=== PATIENT | male | born 1950 | race Caucasian/White ===

== ENCOUNTER → 2017-09-06 | Outpatient (CLI) | payer MEDICARE, BC | LOC: OD 10:13 | PROVIDERS: ATTEND Family Medicine | DX: E11.9 Type 2 diabetes mellitus without complications (principal) | CPT/HCPCS: 36415; 83036 ==

== ENCOUNTER → 2018-01-29 | Outpatient (CLI) | payer BC, MEDICARE ==
[2018-01-29 15:42] LABS: MEAN CORPUSCULAR HEMOGLOBIN 28.1 pg (27.0-33.4); MEAN CORPUSCULAR HGB CONC 32.4 g/dL (32.0-36.0); MEAN CORPUSCULAR VOLUME 87 fl (80-97); PLATELET COUNT 248 10^3/uL (150-450); RED BLOOD COUNT 3.93 10^6/uL (4.35-5.55); RED CELL DISTRIBUTION WIDTH 14.6 % (11.5-14.0); WHITE BLOOD COUNT 5.5 10^3/uL (4.0-10.5)
[2018-01-29 16:18] LABS: ALANINE AMINOTRANSFERASE 17 U/L (21-72); ALBUMIN 3.9 g/dL (3.5-5.0); ALKALINE PHOSPHATASE 86 U/L (38-126); ANION GAP 17 (5-19); ASPARTATE AMINO TRANSFERASE 16 U/L (17-59); BILIRUBIN,DIRECT 0.2 mg/dL (0.0-0.4); BILIRUBIN,TOTAL 0.2 mg/dL (0.2-1.3); BLOOD UREA NITROGEN 54 mg/dL (7-20); CALCIUM 8.9 mg/dL (8.4-10.2); CARBON DIOXIDE 18 mmol/L (22-30); CHLORIDE 114 mmol/L (98-107); GLUCOSE 105 mg/dL (75-110); POTASSIUM 5.1 mmol/L (3.6-5.0); SODIUM 148.9 mmol/L (137-145); TOTAL PROTEIN 6.8 g/dL (6.3-8.2)
[2018-01-29 17:26] LABS: FOLATE > 20.00 ng/mL (>2.76)
== END ==
LOC: OD 14:34
PROVIDERS: ATTEND Family Medicine
DX: E11.9 Type 2 diabetes mellitus without complications (principal); D50.9 Iron deficiency anemia, unspecified
CPT/HCPCS: 36415; 80053; 82607; 82746; 84443; 85027; 86592

== ENCOUNTER 2018-07-13 22:05 | Emergency (ER) | payer MEDICARE ==
[~2018-07-13 22:05] MED LIST: ROCURONIUM BROMIDE INJ 50 MG/5 ML VIAL IV ONE
[2018-07-13] MEDS ORDERED: IPRATROPIUM/ALBUTEROL 0.5-2.5 MG/3 ML AMPUL NEB ONE ×2 (22:19→22:20)
--- NOTE | 2018-07-13 22:19 | ER Document Report ---
ED General - General Stated Complaint: RESPIRATORY DISTRESS Time Seen by Provider: 07/13/18 22:17 Notes: Patient is a 68-year-old male was brought from a nursing facility due to being very weak and having difficulty breathing. He is apparently not been eating or drinking for last 3 days and has been lying in bed and had progressively worsening difficulty breathing. He presents very weak appearing. Mouth is very dry. He cannot answer any questions. He appears to be aware of where he is at and will shake his head yes or no some questions. He has a lot of gurgling in sounds appears to be a lot of mucus in his airways that he is having a hard time clearing. When asked him if he has pain he shakes his head no. When I asked him if he feels short of breath he shakes his head yes. He does not seem to know whether or not he had recent fevers. Further history is very limited. TRAVEL OUTSIDE OF THE [place] IN LAST 30 DAYS: No - Related Data Allergies/Adverse Reactions: Penicillins Allergy (Unknown, Verified 10/26/14 19:40) Past Medical History - Social History Smoking Status: Unknown if Ever Smoked Frequency of alcohol use: unknown Drug Abuse: Other - unknown Family History: Reviewed & Not Pertinent - Past Medical History Cardiac Medical History: Reports: Hx Congestive Heart Failure, Hx Hypercholesterolemia, Hx Hypertension Endocrine Medical History: Reports: Hx Diabetes Mellitus Type 2 GI Medical History: Reports: Hx Gastroesophageal Reflux Disease Musculoskeletal Medical History: Reports Hx Arthritis - osteo, Reports Hx Musculoskeletal Trauma Psychiatric Medical History: Denies: Hx Depression Traumatic Medical History: Reports: Hx Fractures Past Surgical History: Reports: Hx Appendectomy, Hx Gastric Bypass Surgery, Hx Orthopedic Surgery - ankle, arm - Immunizations Immunizations up to date: Yes Hx Diphtheria, Pertussis, Tetanus Vaccination: Yes Review of Systems - Review of Systems -: Yes ROS unobtainable due to patient's medical condition Physical Exam - Vital signs Vitals: Resp BP 20 143/129 H 07/13/18 22:10 07/13/18 22:10 - General Notes: General Appearance: Patient laying on bed with mouth open. Mouth is very dry. Patient has coarse respirations with gurgling type sounds and upper airway consistent with a large amount of mucus. Vitals: reviewed, See vital signs table. Head: no swelling or tenderness to the head Eyes: PERRL, EOMI, Conjuctiva clear Mouth: Very dry Throat: No tonsillar inflammation, No airway obstruction, No lymphadenopathy Neck: Supple, no neck tenderness, No thyromegaly Lungs: Rhonchus breath sounds throughout. Heart: Normal rate, Regular rythm, No murmur, no rub Abdomen: Normal BS, soft, No rigidity, No abdominal tenderness, No guarding, no rebound, obese abdomen Extremities: strength 5/5 in all extremities, good pulses in all extremities, no swelling or tenderness in the extremities, 1+ bilateral lower extremity edema. Skin: warm, dry, appropriate color, no rash Neuro: Awake and alert. Patient will not talk and therefore difficult to determine if he is oriented. Patient is very weak and lying in bed and therefore he does not give a good neurologic exam. Course - Re-evaluation Re-evalutation: 07/13/18 22:18 Initial evaluation patient has a lot of gurgling. This sounds more like he has a lot of mucus he cannot clear from his airway. I do not want to place BiPAP on him yet says that filled if he coughs up the mucus he may just inhaler back down. I will give him some breathing treatments to try to help him cough clear the mucus. We were then suctioned mucus as he coughs it out. We will then go to BiPAP. His O2 saturation on room air currently is 94%. 07/13/18 22:33 Patient worsening some of the breathing treatment. Desaturation down to 88% and he is looking more fatigued. Patient therefore placed on BiPAP. If he does not improve on BiPAP at the next 10 minutes and I will elect to intubate and will do deep suction after intubating. 07/13/18 22:50 Patient's hypoxia has improved with BiPAP however he still looks very fatigued and is very acidotic. I suspect his acute renal failure and his mental status seems to continue to worsen and not improve. I therefore think ventilator is most appropriate. Based on the ventilator and suctioning. Being that I suspect acute renal failure will give him Rocuronium as supposed to succinylcholine. We will sedate him with Etomidate. 07/13/18 23:14 Patient is now intubated. Is currently being suctioned through the ET tube. Patient is stable on the ventilator at this time. We will continue to closely manage. Repeat chest x-ray is pending. Paramedics did say that he is a full code. 07/13/18 23:14 07/14/18 00:29 Patient started becoming hypotensive. Increased boluses with IV fluids. Is also hypothermic and was placed him on a bear hugger. I placed a central line was started levophed. On his x-ray he does have what appears to be some infiltrate of process forming in the left lower lobe. This could potentially just be due to mucous plugging or this could be related to developing pneumonia. I have ordered antibiotics. Patient's acute renal failure. I gave him an amp of bicarb because of severe acidosis. 07/14/18 01:02 Patient is continued to have recurrent episodes of becoming hypotensive that becoming more frequently. Levophed is 18. I have ordered an epi drip to be started. He is now on his fifth liter of IV fluids. I am using lactated Ringer 's due to the fact the patient is very acidotic and is can require a lot of fluid resuscitation. I suspect that he is extremely dry based on the fact that the history from the paramedics that he has been laying in the bed and not eating or drinking now for 3 days and also clinically he appeared very dry on exam. Also what urine he is putting out is extremely dark in color. We will continue try to resuscitate the patient. 07/14/18 02:02 I just spoke with Dr. Irene, mill stenciler at [facility], who agrees to accept the patient. Patient's blood pressure continues to hover between the 80s and low 100s systolic. I will give him more IV fluids as I feel he is probably failure volume depleted. He is now started to put out more urine. He is received 5 L total has put out approximately 700 mL's of urine. His urine is still very dark. I will add a CPK as a suspect he could be in rhabdo. 07/14/18 04:07 I spoke with the patient's sister, Lorin, . She is next of kin. I explained to her his very ill condition. I did inform her that I think there is a high likelihood that he might not survive this. Patient's sister is very upset. She requested that we fly the patient. I informed her of our requested fly the patient divided; however, they are not flying at this time due to fog in weather. She requested transfer the patient to [facility] but I informed her several times at [facility] is only excepting patients that our STEMI is or severe traumas. Mr. Santiago does not fit any of these categories. At this time Lorin still wants everything done possible. We will continue him on the pressors and continue to try to support his pressure as best as we can. 07/14/18 04:57 I have ordered dopamine for better support the patient's blood pressure. His blood pressure is now 101/671. This is his third pressor that he is currently on. I did get a note from the nurse that the patient's nephew wants me to call him. I did attempt to call him what my phone call went to voicemail and therefore I left a voicemail with my number for him to call me back. 07/14/18 05:03 Being that Mrs. Padgett really wanted to be transferred to [facility] I did still call them despite being told about their limited transfer capability this time. I spoke with Opal at the transfer center. I explained patient's current condition and diagnosis. She says unfortunately they cannot take him at this time as they are only taking STEMIs, severe trauma, cafe lead, and acute stroke. Again at this time [facility] seems to be her best option and close this. I took [facility] last ICU bed with a different transfer and therefore they are not an option with bed availability. We will continue with [facility] as they the closest facility with bed availability 07/14/18 05:08 07/14/18 05:50 07/14/18 06:30 Patient's blood pressure still improved with the dopamine. Currently his blood pressure is 97/40. We will continue all 3 pressors. I did ask to see what the delay in transfer is and at this time the delay is that they are waiting for him to give us a bed assignment. I did again try and call the nephew, Steve Ny, . He still did not mixing picker tender the phone. 07/14/18 06:34 I did contact [facility] again to see about 1 but this time it would be. They said that they expect to receive a bed today after morning discharges are transferred to the ICU. 07/14/18 06:52 [facility] has now given us a bed assignment. I did speak with the nephew, Steve Ny, and answered his questions to the best of my ability. - Vital Signs Vital signs: Temp Pulse Resp BP Pulse Ox 25 H 96/48 L 96 07/14/18 09:30 07/14/18 09:30 07/14/18 09:23 - Laboratory Result Diagrams: 07/13/18 22:26 07/14/18 02:09 Laboratory results interpreted by me: 07/13/18 07/13/18 07/13/18 22:26 22:26 22:26 RBC 3.76 L Hgb 10.4 L Hct 31.9 L RDW 16.3 H Seg Neuts % (Manual) 89 H Lymphocytes % (Manual) 5 L Abs Lymphs (Manual) 0.4 L ABG pH ABG pO2 ABG HCO3 ABG Total CO2 ABG O2 Saturation VBG pH 7.04 L* VBG HCO3 9.6 L Potassium 5.5 H Chloride 112 H Carbon Dioxide 10 L* Anion Gap 20 H BUN 159 H Creatinine 10.22 H Est GFR ( Amer) 6 L Est GFR (Non-Af Amer) 5 L Glucose Calcium Direct Bilirubin 0.6 H AST 94 H Creatine Kinase 07/14/18 07/14/18 07/14/18 02:09 02:09 06:50 RBC Hgb Hct RDW Seg Neuts % (Manual) Lymphocytes % (Manual) Abs Lymphs (Manual) ABG pH 7.08 L* ABG pO2 73.7 L ABG HCO3 10.7 L ABG Total CO2 11.9 L ABG O2 Saturation 88.5 L VBG pH VBG HCO3 Potassium 5.3 H Chloride 113 H Carbon Dioxide 13 L Anion Gap BUN 142 H Creatinine 8.11 H Est GFR ( Amer) 8 L Est GFR (Non-Af Amer) 7 L Glucose 132 H Calcium 8.0 L Direct Bilirubin AST Creatine Kinase 33 L - EKG Interpretation by Me Additional EKG results interpreted by me: 07/13/18 22:17 EKG is reviewed and interpreted by me. EKG shows what appears to be A. fib with a rate of 71 bpm. There is a lot of baseline artifact and therefore it is really difficult to tell whether not P waves are present. No ST segment elevation or depression. No ischemic T-wave inversions. QRS duration and QT intervals are within normal range. Old EKG for comparison is from June 12, 2015. Procedures - Central Line Right Internal jugular Consent obtained: No - emergent Central line pre-insertion: Chloraprep applied Central line lumen type: Triple Ultrasound guided: Yes CM at insertion site: 15 Line secured with sutures: Yes Central line post-insertion: Blood return from lumens, Biopatch applied, Sutured , Sterile dressing applied, Position confirmed w/ CXR Number of attempts: 1 Complications: No - Intubation Orotracheal Airway evaluation: Obese Mallampati Classification: Class 2 Medications: Etomidate, Other - rocuronium Intubation method: Orotracheal Blade type: Citlalli Blade size: 4 Equipment used: Glidescope ETT size: 7.5 Breath Sounds after Intubation: Equal End tidal CO2 confirmed: Yes Post Intubation Xray: Yes Intubation Complications: No complications Critical Care Note - Critical Care Note Total time excluding time spent on procedures (mins): 120 Comments: Critical care time for this patient not including times spent on procedures approximately 120 minutes due to recurrent frequent bedside evaluations, management of attention, management of sedation. Discharge - Discharge Clinical Impression: Acute renal failure Qualifiers: Acute renal failure type: unspecified Qualified Code(s): N17.9 - Acute kidney failure, unspecified Respiratory failure Qualifiers: Chronicity: unspecified Respiratory failure complication: hypoxia Qualified Code(s): J96.91 - Respiratory failure, unspecified with hypoxia Hypotension Qualifiers: Hypotension type: unspecified hypotension type Qualified Code(s): I95.9 - Hypotension, unspecified Condition: Stable Disposition: [facility] Referrals: SAADIA SINGH MD [Primary Care Provider] - Follow up as needed
[2018-07-13 22:44] LABS: VENOUS BLOOD BASE EXCESS -20.1 mmol/L; VENOUS BLOOD HCO3 9.6 mmol/L (20-32); VENOUS BLOOD PCO2 36.5 mmHg (35-63)
[2018-07-13 22:48] LABS: VENOUS BLOOD PH 7.04 (7.30-7.42)
[2018-07-13] MEDS ORDERED: ETOMIDATE INJ/PF 20 MG/10 ML SDV IV ONE ×2 (22:50→23:13)
[2018-07-13 22:51] LABS: HEMATOCRIT 31.9 % (37.9-51.0); HEMOGLOBIN 10.4 g/dL (13.5-17.0); MEAN CORPUSCULAR HEMOGLOBIN 27.7 pg (27.0-33.4); MEAN CORPUSCULAR HGB CONC 32.6 g/dL (32.0-36.0); MEAN CORPUSCULAR VOLUME 85 fl (80-97); PLATELET COUNT 349 10^3/uL (150-450); RED BLOOD COUNT 3.76 10^6/uL (4.35-5.55); RED CELL DISTRIBUTION WIDTH 16.3 % (11.5-14.0); WHITE BLOOD COUNT 8.5 10^3/uL (4.0-10.5)
[2018-07-13] MEDS ORDERED: PROPOFOL 1,000 MG/100 ML INFUS..BTL IV ONE (22:53)
[2018-07-13 23:02] LABS: ABSOLUTE LYMPHOCYTES# (MANUAL) 0.4 10^3/uL (0.5-4.7); ABSOLUTE MONOCYTES # (MANUAL) 0.5 10^3/uL (0.1-1.4); ABSOLUTE NEUTROPHILS# (MANUAL) 7.6 10^3/uL (1.7-8.2); BASOPHILS % (MANUAL) 0 % (0-2); EOSINOPHILS % (MANUAL) 0 % (0-6); LYMPHOCYTES % (MANUAL) 5 % (13-45); MONOCYTES % (MANUAL) 6 % (3-13); SEGMENTED NEUTROPHILS % (MAN) 89 % (42-78); TOTAL CELLS COUNTED 100
[2018-07-13 23:03] LABS: ANISOCYTOSIS 1+; PLATELET COMMENT ADEQUATE; POIKILOCYTOSIS 1+; POLYCHROMASIA 1+; TEAR DROP CELLS 1+
[2018-07-13 23:05] LABS: ALANINE AMINOTRANSFERASE 46 U/L (21-72); ALBUMIN 3.5 g/dL (3.5-5.0); ALKALINE PHOSPHATASE 75 U/L (38-126); ASPARTATE AMINO TRANSFERASE 94 U/L (17-59); BILIRUBIN,DIRECT 0.6 mg/dL (0.0-0.4); BILIRUBIN,TOTAL 0.6 mg/dL (0.2-1.3); CHLORIDE 112 mmol/L (98-107); GLUCOSE 83 mg/dL (75-110); POTASSIUM 5.5 mmol/L (3.6-5.0); SODIUM 141.6 mmol/L (137-145); TOTAL PROTEIN 6.8 g/dL (6.3-8.2)
[2018-07-13] MEDS ORDERED: ROCURONIUM BROMIDE INJ 50 MG/5 ML VIAL IV ONE (23:13)
[2018-07-13] MEDS ORDERED: PROPOFOL 1,000 MG/100 ML INFUS..BTL IV PRN (23:13)
[2018-07-13] MEDS ORDERED: RINGERS SOLUTION,LACTATED 1,000 ML IV ONE ×2 (23:15→23:55)
[2018-07-13 23:39] LABS: BLOOD UREA NITROGEN 159 mg/dL (7-20)
[2018-07-13] MEDS ORDERED: NOREPINEPHRINE BITARTRATE INJ/PF 4 MG/4 ML SDV IV ONE (23:39)
[2018-07-13 23:42] LABS: ANION GAP 20 (5-19); CARBON DIOXIDE 10 mmol/L (22-30); TROPONIN I 0.099 ng/mL
[2018-07-13] MEDS ORDERED: MIDAZOLAM HCL 50 MG/100 ML RTUINJ ONE (23:46)
[2018-07-13] MEDS ORDERED: SODIUM BICARBONATE 8.4% INJ 50 MEQ/50 ML DISP.SYRIN ONE (23:47)
--- NOTE | 2018-07-13 23:51 | RADIOLOGY REPORT (SQ) ---
EXAM DESCRIPTION: XR CHEST 1 VIEW COMPLETED DATE/TME: 07/13/2018 22:19 CLINICAL HISTORY: 68 years, Male, dyspnea Portable chest HISTORY: Shortness of breath. FINDINGS: Heart is moderately enlarged. No consolidation or pleural effusion. No pulmonary edema or pneumothorax. IMPRESSION: No acute disease.
--- NOTE | 2018-07-13 23:52 | RADIOLOGY REPORT (SQ) ---
EXAM DESCRIPTION: XR CHEST 1 VIEW COMPLETED DATE/TME: 07/13/2018 23:14 CLINICAL HISTORY: 68 years, Male, post intubation Findings: The heart is moderately enlarged. Endotracheal tube is in place with tip about 3 cm above the harshil. No pneumothorax. No pleural effusions. IMPRESSION: No acute disease. Endotracheal tube in place.
[2018-07-13] MEDS ORDERED: MIDAZOLAM HCL 50 MG/100 ML RTUINJ IV PRN (23:55)
[2018-07-14] MEDS ORDERED: VANCOMYCIN HCL INJ 1000 MG VIAL ONE (00:14)
[2018-07-14] MEDS ORDERED: PIPERACILLIN/TAZOBACTAM 3.375 GM VIAL IV ONE (00:15)
[2018-07-14] MEDS ORDERED: PIPERACILLIN/TAZOBACTAM 2.25 GM VIAL IV ONE (00:18)
[2018-07-14] MEDS ORDERED: LEVOFLOXACIN 750 MG/D5W RTU 750 MG/150 ML RTUPB IV ONE (00:26)
[2018-07-14] MEDS: RINGERS SOLUTION,LACTATED 1,000 ML IV PRN ×4 (00:40→03:36)
[2018-07-14] MEDS ORDERED: SODIUM BICARBONATE 8.4% INJ 50 MEQ/50 ML DISP.SYRIN ONE ×4 (00:41→09:47)
[2018-07-14] MEDS ORDERED: EPINEPHRINE INJ/PF 1 MG/1 ML AMPULE ONE ×2 (00:45→09:10)
[2018-07-14] MEDS ORDERED: RINGERS SOLUTION,LACTATED 1,000 ML IV ONE (01:04)
[2018-07-14 01:49] LABS: APPEARANCE,URINE SLIGHTLY-CLOUDY; BILIRUBIN,URINE NEGATIVE (NEGATIVE); GLUCOSE, URINE NEGATIVE (NEGATIVE); KETONES,URINE NEGATIVE (NEGATIVE); LEUKOCYTE ESTERASE,URINE NEGATIVE (NEGATIVE); NITRITE,URINE NEGATIVE (NEGATIVE); PROTEIN,URINE NEGATIVE (NEGATIVE); URINE SPECIFIC GRAVITY 1.019; UROBILINOGEN,URINE NEGATIVE mg/dL (<2.0)
[2018-07-14 01:50] LABS: COLOR,URINE DARK YELLOW
--- NOTE | 2018-07-14 02:23 | RADIOLOGY REPORT (SQ) ---
EXAM DESCRIPTION: XR CHEST 1 VIEW COMPLETED DATE/TME: 07/14/2018 01:03 CLINICAL HISTORY: post central line placement COMPARISON: 07/13/2018 FINDINGS: Single frontal view of the chest. Cardiomediastinal silhouette is stable. Endotracheal tube with tip 3 cm above the harshil. Interval placement of right IJ central venous catheter tip overlying the region of SVC. Stable bibasilar opacities. No definite pneumothorax. Leads overlie the chest. Postoperative change in the epigastric region. Osseous structures are stable. Upper abdominal soft tissues are unremarkable. IMPRESSION: 1. Right IJ central venous catheter with tip in the region of the SVC. Otherwise stable appearance of the chest.
[2018-07-14] MEDS ORDERED: FUROSEMIDE INJ/PF 40 MG/4 ML SDV IV ONE (02:34)
[2018-07-14] MEDS ORDERED: DEXTROSE 5%-WATER 250 ML with NOREPINEPHRINE BITARTRATE 4 MG IV PRN ×4 (02:45→09:42)
[2018-07-14 02:48] LABS: ANION GAP 15 (5-19); CARBON DIOXIDE 13 mmol/L (22-30); CHLORIDE 113 mmol/L (98-107); GLUCOSE 132 mg/dL (75-110); POTASSIUM 5.3 mmol/L (3.6-5.0); SODIUM 141.1 mmol/L (137-145)
[2018-07-14] MEDS ORDERED: NOREPINEPHRINE BITARTRATE INJ/PF 4 MG/4 ML SDV IV ONE ×2 (02:49→08:49)
[2018-07-14 02:56] LABS: BLOOD UREA NITROGEN 142 mg/dL (7-20)
[2018-07-14] MEDS ORDERED: DOPAMINE HCL/DEXTROSE 5%-WATER 800 MG/250 ML RTUINJ IV PRN (04:32)
[2018-07-14 07:14] LABS: ARTERIAL BLOOD BASE EXCESS -18.2 mmol/L; ARTERIAL BLOOD H2CO3 1.11 mmol/L (1.05-1.35); ARTERIAL BLOOD HCO3 10.7 mmol/L (20-24); ARTERIAL BLOOD O2 SATURATION 88.5 % (94-98); ARTERIAL BLOOD PO2 73.7 mmHg (80-100); ARTERIAL BLOOD TOTAL CO2 11.9 mmol/L (23-27)
[2018-07-14 07:24] LABS: ARTERIAL BLOOD FIO2 100%
[2018-07-14 07:27] LABS: ARTERIAL BLOOD PH 7.08 (7.35-7.45)
[2018-07-14] MEDS ORDERED: DEXTROSE 5%-WATER 250 ML with EPINEPHRINE/PF 1 MG IV PRN ×4 (09:41)
--- NOTE | 2018-07-14 09:42 | ER Document Report ---
ED Medical Screen (RME) - General Chief Complaint: Respiratory Distress Stated Complaint: RESPIRATORY DISTRESS Time Seen by Provider: 07/13/18 22:17 Notes: Patient evaluated prior to transportation. Condition is unchanged. Patient is stable for transport TRAVEL OUTSIDE OF THE [place] IN LAST 30 DAYS: No - Related Data Allergies/Adverse Reactions: Penicillins Allergy (Unknown, Verified 10/26/14 19:40) Past Medical History - Social History Frequency of alcohol use: unknown Drug Abuse: Other - unknown - Past Medical History Cardiac Medical History: Reports: Hx Congestive Heart Failure, Hx Hypercholesterolemia, Hx Hypertension Endocrine Medical History: Reports: Hx Diabetes Mellitus Type 2 Renal/ Medical History: Denies: Hx Peritoneal Dialysis GI Medical History: Reports: Hx Gastroesophageal Reflux Disease Musculoskeltal Medical History: Reports Hx Arthritis - osteo, Reports Hx Musculoskeletal Trauma Psychiatric Medical History: Denies: Hx Depression Traumatic Medical History: Reports: Hx Fractures Past Surgical History: Reports: Hx Appendectomy, Hx Gastric Bypass Surgery, Hx Orthopedic Surgery - ankle, arm - Immunizations Immunizations up to date: Yes Hx Diphtheria, Pertussis, Tetanus Vaccination: Yes Physical Exam - Vital signs Vitals: Resp BP 20 143/129 H 07/13/18 22:10 07/13/18 22:10 Course - Vital Signs Vital signs: Temp Pulse Resp BP Pulse Ox 25 H 81/43 L 95 07/14/18 09:20 07/14/18 09:20 07/14/18 09:20 - Laboratory Result Diagrams: 07/13/18 22:26 07/14/18 02:09 Laboratory results interpreted by me: 07/13/18 07/13/18 07/13/18 22:26 22:26 22:26 RBC 3.76 L Hgb 10.4 L Hct 31.9 L RDW 16.3 H Seg Neuts % (Manual) 89 H Lymphocytes % (Manual) 5 L Abs Lymphs (Manual) 0.4 L ABG pH ABG pO2 ABG HCO3 ABG Total CO2 ABG O2 Saturation VBG pH 7.04 L* VBG HCO3 9.6 L Potassium 5.5 H Chloride 112 H Carbon Dioxide 10 L* Anion Gap 20 H BUN 159 H Creatinine 10.22 H Est GFR ( Amer) 6 L Est GFR (Non-Af Amer) 5 L Glucose Calcium Direct Bilirubin 0.6 H AST 94 H Creatine Kinase 07/14/18 07/14/18 07/14/18 02:09 02:09 06:50 RBC Hgb Hct RDW Seg Neuts % (Manual) Lymphocytes % (Manual) Abs Lymphs (Manual) ABG pH 7.08 L* ABG pO2 73.7 L ABG HCO3 10.7 L ABG Total CO2 11.9 L ABG O2 Saturation 88.5 L VBG pH VBG HCO3 Potassium 5.3 H Chloride 113 H Carbon Dioxide 13 L Anion Gap BUN 142 H Creatinine 8.11 H Est GFR ( Amer) 8 L Est GFR (Non-Af Amer) 7 L Glucose 132 H Calcium 8.0 L Direct Bilirubin AST Creatine Kinase 33 L Doctor's Discharge - Discharge Clinical Impression: Acute renal failure Qualifiers: Acute renal failure type: unspecified Qualified Code(s): N17.9 - Acute kidney failure, unspecified Respiratory failure Qualifiers: Chronicity: unspecified Respiratory failure complication: hypoxia Qualified Code(s): J96.91 - Respiratory failure, unspecified with hypoxia Hypotension Qualifiers: Hypotension type: unspecified hypotension type Qualified Code(s): I95.9 - Hypotension, unspecified Condition: Stable Disposition: [facility] Referrals: SAADIA SINGH MD [Primary Care Provider] - Follow up as needed
[2018-07-14] MEDS ORDERED: SODIUM BICARBONATE 8.4% INJ 50 MEQ/50 ML DISP.SYRIN IV ONE ×2 (09:43→09:56)
[2018-07-14 10:06] VITALS: BP 96/48
--- NOTE | 2018-07-14 21:53 | EKG REPORT ---
SEVERITY:- ABNORMAL ECG - ATRIAL FIBRILLATION, V-RATE 73-83 : Confirmed by: Nimo Richard MD 14-Jul-2018 21:52:57
== END 2018-07-14 10:11 | disposition short-term general hospital (02) ==
LOC: ER 22:05
DX: J96.91 Respiratory failure, unspecified with hypoxia (principal); N17.9 Acute kidney failure, unspecified; I95.9 Hypotension, unspecified; T68.XXXA Hypothermia, initial encounter; E87.2 Acidosis; I10 Essential (primary) hypertension; E11.9 Type 2 diabetes mellitus without complications; R53.1 Weakness; Z98.84 Bariatric surgery status; Z88.0 Allergy status to penicillin
CPT/HCPCS: 93005; 94640; 99291; 99292; 96375; 96365; 96366; 96368; 36415; 87040; 82803 ×2; 82550; 85025; 80048; 80053; 81001; 84484; 83605; 83880; 71045 ×2; 94660; 93010; 36556; 31500; C1751; J3490 ×6; J1265; J0171; J1940; J2704; J2250; J3370; J1956; A9270; J2543; J7620